=== PATIENT | male | born 1960 | race African-American/Black ===

== ENCOUNTER 2022-02-21 08:10 | Observation (INO) | payer MEDICARE, BC ==
[2022-02-21 08:47] LABS: #Eosinphils 0.3 10x3/uL (0.0-0.5); #Monocytes 0.9 10x3/uL (0.0-1.1); #Neutrophils 3.4 10x3/uL (1.5-8.4); %Basophils 0.3 % (0.0-2.0); %Eosinophils 3.9 % (0.0-6.0); %Lymphocytes 33.9 % (18.0-47.0); %Monocytes 13.4 % (0.0-10.0); %Neutrophils 48.4 % (40.0-75.0); Hemoglobin 13.7 g/dL (13.5-17.5); Mean Corpuscular HGB CONC 31.6 g/dL (32.0-36.0); Mean Corpuscular Hemoglobin 24.3 pg (27.0-33.0); Mean Corpuscular Volume 77.1 fl (81.2-95.1); Mean Platelet Volume 9.4 fl (7.4-10.4); Platelet Count 278 10x3/uL (150-450); RBC Distribution Width 16.8 % (11.5-14.5); Red Blood Cell (RBC) Count 5.63 10x6/uL (4.32-5.72); White Blood Cell (WBC) Count 6.9 10x3/uL (3.5-10.5)
[2022-02-21 08:56] LABS: Prothrombin Time 10.6 sec (9.5-12.1)
[2022-02-21 09:03] LABS: ALT (SGPT) 50 U/L (8-55); AST (SGOT) 35 U/L (5-34); Albumin 4.3 g/dL (3.4-4.8); Alkaline Phosphatase 87 U/L (40-110); Anion Gap 14 mmol/L (10-20); BUN (Urea Nitrogen) 26 mg/dL (8.4-25.7); Bilirubin, Total 0.8 mg/dL (0.2-1.2); Calc. Creatinine Clearance 0 mL/min (70-130); Calcium 9.7 mg/dL (7.8-10.44); Carbon Dioxide 28 mmol/L (23-31); Chloride 103 mmol/L (98-107); Estimated GFR 48; Glucose 135 mg/dL (80-115); Potassium 3.9 mmol/L (3.5-5.1); Protein, Total 7.3 g/dL (5.8-8.1); Sodium 141 mmol/L (136-145)
[2022-02-21] MEDS ORDERED: Aspirin Chewable 81 MG TAB ONE (11:22)
[2022-02-21 12:35] LABS: Troponin I Less than 0.010 ng/mL (< 0.028)
[2022-02-21] MEDS ORDERED: Dextrose 50% Abboject 50 ML SYRINGE SLOW IVP PRN (12:54)
[2022-02-21] MEDS ORDERED: HumaLOG 300 UNITS/3 ML VIAL SC PRN ×2 (12:54)
[2022-02-21] MEDS ORDERED: Dextrose 5% in Water 1,000 ML IV PRN (12:54)
[2022-02-21] MEDS ORDERED: Ondansetron ODT 4 MG TAB PO PRN (12:55)
[2022-02-21] MEDS ORDERED: Acetaminophen 325 MG TAB PO PRN (12:55)
[2022-02-21] MEDS ORDERED: Senokot S 8.6-50 MG TAB PO PRN (12:55)
[2022-02-21] MEDS ORDERED: Ondansetron PF 4 MG/2 ML Vial IVP PRN (12:55)
[2022-02-21 14:44] LABS: Troponin I Less than 0.010 ng/mL (< 0.028)
[2022-02-21 14:51] LABS: SARS-CoV-2 NAA Rapid Test Not Detected (NotDetected)
[2022-02-21 18:14] VITALS: BMI 42.3
[2022-02-21] MEDS ORDERED: FLU VACC QS2022-23(6MOS UP)/PF 60 MCG/0.5 ML SYRINGE IM ONE (19:00)
[2022-02-21] MEDS ORDERED: Atorvastatin Calcium 10 MG TAB PO SCH (21:00)
[2022-02-21] MEDS ORDERED: Lantus 1000 UNITS/10 ML VIAL SC SCH (21:00)
[2022-02-21] MEDS ORDERED: OMEGA ACID ETHYL ESTERS PO SCH (21:00)
[2022-02-21] MEDS ORDERED: Ezetimibe 10 MG TAB PO SCH (21:00)
[2022-02-21] MEDS ORDERED: cloNIDine 0.1 MG TAB PO SCH (21:00)
[2022-02-21] MEDS: Heparin 5,000 UNITS/ML VIAL SC SCH (21:41)
[2022-02-21] MEDS: Nitroglycerin 2% Ointment 1 INCH/1 GM Packet TOP SCH (21:42)
[2022-02-22 05:33] LABS: #Eosinphils 0.3 10x3/uL (0.0-0.5); #Monocytes 0.9 10x3/uL (0.0-1.1); #Neutrophils 3.7 10x3/uL (1.5-8.4); %Basophils 0.3 % (0.0-2.0); %Lymphocytes 32.2 % (18.0-47.0); %Monocytes 12.1 % (0.0-10.0); %Neutrophils 51.3 % (40.0-75.0); Hemoglobin 12.5 g/dL (13.5-17.5); Mean Corpuscular HGB CONC 31.4 g/dL (32.0-36.0); Mean Corpuscular Hemoglobin 24.4 pg (27.0-33.0); Mean Corpuscular Volume 77.7 fl (81.2-95.1); Mean Platelet Volume 9.2 fl (7.4-10.4); Platelet Count 239 10x3/uL (150-450); RBC Distribution Width 17.2 % (11.5-14.5); Red Blood Cell (RBC) Count 5.12 10x6/uL (4.32-5.72); White Blood Cell (WBC) Count 7.3 10x3/uL (3.5-10.5)
[2022-02-22 05:39] LABS: Anion Gap 12 mmol/L (10-20); BUN (Urea Nitrogen) 26 mg/dL (8.4-25.7); Calc. Creatinine Clearance 86 mL/min (70-130); Calcium 8.8 mg/dL (7.8-10.44); Carbon Dioxide 28 mmol/L (23-31); Chloride 104 mmol/L (98-107); Estimated GFR 48; Glucose 147 mg/dL (80-115); Potassium 4.2 mmol/L (3.5-5.1); Sodium 140 mmol/L (136-145)
[2022-02-22] MEDS ORDERED: Pioglitazone HCl 15 MG TAB PO SCH (09:00)
[2022-02-22] MEDS ORDERED: Clopidogrel Bisulfate 75 MG TAB PO SCH (09:00)
[2022-02-22] MEDS ORDERED: Losartan Potassium 50 MG TAB PO SCH (09:00)
[2022-02-22] MEDS ORDERED: Aspirin Chewable 81 MG TAB PO SCH (09:00)
[2022-02-22] MEDS ORDERED: Losartan 25 MG TAB PO SCH (09:00)
[2022-02-22] MEDS ORDERED: Atorvastatin Calcium 40 MG TAB PO SCH (09:00)
[2022-02-22] MEDS ORDERED: Empagliflozin 10 MG TAB PO SCH (09:00)
[2022-02-22] MEDS ORDERED: Cholecalciferol 1,000 UNITS (25 MCG) TAB PO SCH (09:00)
[2022-02-22] MEDS ORDERED: Amlodipine 5 MG TAB PO SCH (09:00)
[2022-02-22] MEDS: Heparin 5,000 UNITS/ML VIAL SC SCH (09:11)
[2022-02-22] MEDS: Nitroglycerin 2% Ointment 1 INCH/1 GM Packet TOP SCH (09:11)
[2022-02-22 13:45] VITALS: BP 150/69; TEMP 98
[2022-02-22 14:32] LABS: Hemoglobin A1c 9.8 % (4.0-6.0)
== END 2022-02-22 13:18 | disposition home or self-care (01) ==
LOC: CSHERS 08:10 → CSHERHOLD 13:46 → INTOOBSV 13:46 → CSHTELE 17:30
PROVIDERS: ADMIT Family Medicine; ATTEND Family Medicine
DX: R07.9 Chest pain, unspecified (principal); I25.118 Atherosclerotic heart disease of native coronary artery with other forms of angina pectoris; Z86.73 Personal history of transient ischemic attack (TIA), and cerebral infarction without residual deficits; I13.0 Hypertensive heart and chronic kidney disease with heart failure and stage 1 through stage 4 chronic kidney disease, or unspecified chronic kidney disease; I50.32 Chronic diastolic (congestive) heart failure; E11.22 Type 2 diabetes mellitus with diabetic chronic kidney disease; N18.30 Chronic kidney disease, stage 3 unspecified; D63.1 Anemia in chronic kidney disease; I70.213 Atherosclerosis of native arteries of extremities with intermittent claudication, bilateral legs; I71.40 Abdominal aortic aneurysm, without rupture, unspecified; Z20.822 Contact with and (suspected) exposure to COVID-19; J45.909 Unspecified asthma, uncomplicated; E11.21 Type 2 diabetes mellitus with diabetic nephropathy; E11.51 Type 2 diabetes mellitus with diabetic peripheral angiopathy without gangrene; E78.2 Mixed hyperlipidemia; Z79.4 Long term (current) use of insulin; Z79.82 Long term (current) use of aspirin; Z79.899 Other long term (current) drug therapy; Z79.02 Long term (current) use of antithrombotics/antiplatelets; Z87.891 Personal history of nicotine dependence
CPT/HCPCS: 0240U; 71045; 80048; 80053; 82962 ×2; 83036; 83880; 84484 ×2; 85025 ×2; 85610; 93005; 94760; 96372 ×2; 97535; 99285; G0378 ×3; 36415; 36416; J1644; J1815

== ENCOUNTER → 2022-02-26 | Day surgery (SDC) | payer MEDICARE, BC ==
[~2022-02-26] MED LIST: Adenosine 6 MG/2 ML VIAL ONE; Ascorbic Acid 500 mg Chewable Tablet ONE; Aspirin Chewable 81 MG TAB ONE; Fentanyl 100 MCG/2 ML VIAL ONE; Heparin 10,000 UNITS/ 10 ML VIAL ONE; Iopamidol 300 61% 100 ML VIAL FS ONE; Iopamidol 300 61% 50 ML VIAL FS ONE; Midazolam HCl 2 mg/2 ml Vial ONE; Nitroglycerin 50 MG/250 ML BOT 250 ML ONE
== END ==
LOC: CSHCCL 09:25
PROVIDERS: ATTEND Specialist
DX: R07.89 Other chest pain (principal); I25.118 Atherosclerotic heart disease of native coronary artery with other forms of angina pectoris; I71.40 Abdominal aortic aneurysm, without rupture, unspecified; E78.2 Mixed hyperlipidemia; I70.213 Atherosclerosis of native arteries of extremities with intermittent claudication, bilateral legs; J45.909 Unspecified asthma, uncomplicated; I13.0 Hypertensive heart and chronic kidney disease with heart failure and stage 1 through stage 4 chronic kidney disease, or unspecified chronic kidney disease; I50.32 Chronic diastolic (congestive) heart failure; E11.22 Type 2 diabetes mellitus with diabetic chronic kidney disease; N18.9 Chronic kidney disease, unspecified; E11.51 Type 2 diabetes mellitus with diabetic peripheral angiopathy without gangrene; E11.21 Type 2 diabetes mellitus with diabetic nephropathy; Z79.82 Long term (current) use of aspirin; Z79.02 Long term (current) use of antithrombotics/antiplatelets; Z79.899 Other long term (current) drug therapy; Z79.4 Long term (current) use of insulin; Z87.891 Personal history of nicotine dependence
CPT/HCPCS: 92928; 92929; 93459; 99152; 99153; C1725; C1760; C1769; C1874; C1887; C9600; C9601; J0153; J1644; J2250; J3010; Q9967

== ENCOUNTER 2022-05-14 10:57 | Observation (INO) | payer MEDICARE, BC ==
[2022-05-14 11:37] LABS: #Eosinphils 0.2 10x3/uL (0.0-0.5); #Monocytes 0.7 10x3/uL (0.0-1.1); #Neutrophils 4.1 10x3/uL (1.5-8.4); %Basophils 0.3 % (0.0-2.0); %Eosinophils 2.6 % (0.0-6.0); %Lymphocytes 27.6 % (18.0-47.0); %Monocytes 9.9 % (0.0-10.0); %Neutrophils 59.5 % (40.0-75.0); Hemoglobin 13.7 g/dL (13.5-17.5); Mean Corpuscular HGB CONC 30.4 g/dL (32.0-36.0); Mean Corpuscular Hemoglobin 23.5 pg (27.0-33.0); Mean Corpuscular Volume 77.4 fl (81.2-95.1); Mean Platelet Volume 8.8 fl (7.4-10.4); Platelet Count 239 10x3/uL (150-450); RBC Distribution Width 16.7 % (11.5-14.5); Red Blood Cell (RBC) Count 5.83 10x6/uL (4.32-5.72); White Blood Cell (WBC) Count 6.8 10x3/uL (3.5-10.5)
[2022-05-14 11:44] LABS: PTT 28.6 sec (22.0-33.0); Prothrombin Time 11.1 sec (9.5-12.1)
[2022-05-14 12:07] LABS: ALT (SGPT) 56 U/L (8-55); AST (SGOT) 30 U/L (5-34); Albumin 4.2 g/dL (3.4-4.8); Alkaline Phosphatase 81 U/L (40-110); Anion Gap 16 mmol/L (10-20); BUN (Urea Nitrogen) 26 mg/dL (8.4-25.7); Bilirubin, Total 0.8 mg/dL (0.2-1.2); Calc. Creatinine Clearance 0 mL/min (70-130); Calcium 9.3 mg/dL (7.8-10.44); Carbon Dioxide 23 mmol/L (23-31); Chloride 102 mmol/L (98-107); Estimated GFR 49; Globulin 3.1 g/dL (2.4-3.5); Glucose 143 mg/dL (80-115); Potassium 4.3 mmol/L (3.5-5.1); Protein, Total 7.3 g/dL (5.8-8.1); Sodium 137 mmol/L (136-145)
[2022-05-14] MEDS ORDERED: Dextrose 50% Abboject 50 ML SYRINGE SLOW IVP PRN (12:55)
[2022-05-14] MEDS ORDERED: Dextrose 5% in Water 1,000 ML IV PRN (12:55)
[2022-05-14] MEDS ORDERED: Iopamidol 300 61% 100 ML VIAL FS ONE (15:57)
[2022-05-14] MEDS ORDERED: cloNIDine 0.1 MG TAB ONE (20:25)
[2022-05-14] MEDS ORDERED: cloNIDine 0.1 MG TAB PO SCH (21:00)
[2022-05-14] MEDS: HumaLOG 300 UNITS/3 ML VIAL SC PRN (22:08)
[2022-05-14 23:00] VITALS: BMI 40.8
[2022-05-14 23:58] LABS: SARS-CoV-2 NAA Rapid Test Not Detected (NotDetected)
[2022-05-15] MEDS ORDERED: FLU VACC QS2022-23(6MO UP)/PF 60 MCG/0.5 ML SYRINGE IM ONE (00:15)
[2022-05-15 05:36] LABS: #Eosinphils 0.2 10x3/uL (0.0-0.5); #Monocytes 0.8 10x3/uL (0.0-1.1); #Neutrophils 3.6 10x3/uL (1.5-8.4); %Basophils 0.3 % (0.0-2.0); %Eosinophils 2.5 % (0.0-6.0); %Lymphocytes 26.6 % (18.0-47.0); %Monocytes 13.4 % (0.0-10.0); Hemoglobin 13.1 g/dL (13.5-17.5); Mean Corpuscular Hemoglobin 23.8 pg (27.0-33.0); Mean Corpuscular Volume 76.9 fl (81.2-95.1); Mean Platelet Volume 9.4 fl (7.4-10.4); Platelet Count 251 10x3/uL (150-450); RBC Distribution Width 15.8 % (11.5-14.5); White Blood Cell (WBC) Count 6.3 10x3/uL (3.5-10.5)
[2022-05-15 05:54] LABS: Anion Gap 14 mmol/L (10-20); BUN (Urea Nitrogen) 26 mg/dL (8.4-25.7); Calc. Creatinine Clearance 93 mL/min (70-130); Calcium 9.2 mg/dL (7.8-10.44); Carbon Dioxide 25 mmol/L (23-31); Cardiac Risk 3.1 (Less than 4.5); Chloride 101 mmol/L (98-107); Cholesterol 102 mg/dl (< 200 Desired); Estimated GFR 54; Glucose 179 mg/dL (80-115); HDL Cholesterol 33 mg/dL (>60 Neg Risk); LDL Cholesterol, Calculated 53 mg/dL; Potassium 4.4 mmol/L (3.5-5.1); Sodium 136 mmol/L (136-145); Triglycerides 82 mg/dL (Less than 150)
[2022-05-15] MEDS: HumaLOG 300 UNITS/3 ML VIAL SC PRN ×2 (06:17→12:01)
[2022-05-15] MEDS ORDERED: Amlodipine 10 MG TAB PO SCH (09:00)
[2022-05-15] MEDS ORDERED: Ezetimibe 10 MG TAB PO SCH (09:00)
[2022-05-15] MEDS ORDERED: Cholecalciferol 1,000 UNITS (25 MCG) TAB PO SCH (09:00)
[2022-05-15] MEDS ORDERED: Pioglitazone HCl 15 MG TAB PO SCH (09:00)
[2022-05-15] MEDS ORDERED: Atorvastatin Calcium 40 MG TAB PO SCH (09:00)
[2022-05-15] MEDS ORDERED: Losartan Potassium 50 MG TAB PO SCH (09:00)
[2022-05-15] MEDS ORDERED: Furosemide 20 MG TAB PO SCH (09:00)
[2022-05-15] MEDS ORDERED: Clopidogrel Bisulfate 75 MG TAB PO SCH (09:00)
[2022-05-15] MEDS ORDERED: Aspirin 81 mg Enteric Coated Tablet PO SCH (09:00)
[2022-05-15] MEDS ORDERED: Calcitriol 0.25 MCG CAP PO SCH (09:00)
[2022-05-15 12:40] VITALS: BP 160/78; TEMP 98.1
== END 2022-05-15 13:12 | disposition home or self-care (01) ==
LOC: CSHERS 10:57 → CSHERHOLD 14:21 → INTOOBSV 14:21 → CSHTELE 21:29
PROVIDERS: ADMIT Student in an Organized Health Care Education/Training Program; ATTEND Physician Assistant Medical
DX: R53.1 Weakness (principal); I12.9 Hypertensive chronic kidney disease with stage 1 through stage 4 chronic kidney disease, or unspecified chronic kidney disease; E11.22 Type 2 diabetes mellitus with diabetic chronic kidney disease; N18.30 Chronic kidney disease, stage 3 unspecified; I25.10 Atherosclerotic heart disease of native coronary artery without angina pectoris; E78.5 Hyperlipidemia, unspecified; H54.62 Unqualified visual loss, left eye, normal vision right eye; R47.81 Slurred speech; Z88.6 Allergy status to analgesic agent; Z88.8 Allergy status to other drugs, medicaments and biological substances; Z79.02 Long term (current) use of antithrombotics/antiplatelets; Z79.899 Other long term (current) drug therapy; Z79.4 Long term (current) use of insulin; Z79.82 Long term (current) use of aspirin; Z87.891 Personal history of nicotine dependence; Z95.5 Presence of coronary angioplasty implant and graft
CPT/HCPCS: 0042T; 70450; 70551; 71045; 80048; 80053; 80061; 82962 ×2; 84484; 85025 ×2; 85610; 85730; 93005; 93306; 97530; 97535; 99285; G0378 ×3; U0002; 36415; 36416; J1815; Q9967

== ENCOUNTER 2024-03-16 17:42 | Emergency (ER) | payer MEDICARE, BC ==
[~2024-03-16 17:42] MED LIST changes: -Adenosine 6 MG/2 ML VIAL ONE; -Ascorbic Acid 500 mg Chewable Tablet ONE; -Aspirin Chewable 81 MG TAB ONE; -Fentanyl 100 MCG/2 ML VIAL ONE; -Heparin 10,000 UNITS/ 10 ML VIAL ONE; -Iopamidol 300 61% 50 ML VIAL FS ONE; -Midazolam HCl 2 mg/2 ml Vial ONE; -Nitroglycerin 50 MG/250 ML BOT 250 ML ONE
[2024-03-16 18:20] LABS: #Basophils Less than 0.03 10x3/uL (0.0-0.2); #Eosinophils 0.24 10x3/uL (0.0-0.5); #Monocytes 0.72 10x3/uL (0.0-1.1); #Neutrophils 4.41 10x3/uL (1.5-8.4); %Basophils 0.3 % (0.0-2.0); %Eosinophils 3.4 % (0.0-6.0); %Lymphocytes 23.3 % (18.0-47.0); %Monocytes 10.2 % (0.0-10.0); %Neutrophils 62.5 % (40.0-75.0); Hematocrit 45.4 % (38.8-50.0); Hemoglobin 13.7 g/dL (13.5-17.5); Mean Corpuscular HGB CONC 30.2 g/dL (32.0-36.0); Mean Corpuscular Hemoglobin 23.4 pg (27.0-33.0); Mean Corpuscular Volume 77.5 fL (81.2-95.1); Mean Platelet Volume 9.1 fL (7.4-10.4); Platelet Count 246 10x3/uL (150-450); RBC Distribution Width 16.7 % (11.5-14.5); Red Blood Cell (RBC) Count 5.86 10x6/uL (4.32-5.72); White Blood Cell (WBC) Count 7.05 10x3/uL (3.5-10.5)
[2024-03-16] MEDS ORDERED: Aspirin Chewable 81 MG TAB ONE (18:23)
[2024-03-16 18:47] LABS: ALT (SGPT) 29 U/L (Less than 45); AST (SGOT) 29 U/L (11-34); Albumin 3.9 g/dL (3.1-4.5); Alkaline Phosphatase 82 U/L (40-110); Anion Gap 13 mmol/L (10-20); BUN (Urea Nitrogen) 28 mg/dL (8.4-25.7); Bilirubin, Total 0.8 mg/dL (0.3-1.2); Calc. Creatinine Clearance 0 mL/min (70-130); Calcium 9.8 mg/dL (7.8-10.44); Carbon Dioxide 25 mmol/L (23-31); Chloride 103 mmol/L (98-107); Estimated GFR 44; Globulin 3.4 g/dL (2.4-3.5); Glucose 198 mg/dL (80-115); Lipase 217 U/L (8-78); Potassium 4.7 mmol/L (3.5-5.1); Protein, Total 7.3 g/dL (5.8-8.1); Sodium 136 mmol/L (136-145)
[2024-03-16 18:49] LABS: Troponin I Less than 0.010 ng/mL (< 0.028)
[2024-03-16 22:49] LABS: Troponin I Less than 0.010 ng/mL (< 0.028)
== END 2024-03-16 23:48 | disposition home or self-care (01) ==
LOC: CSHERS 17:42
DX: K59.00 Constipation, unspecified (principal); R07.9 Chest pain, unspecified; I10 Essential (primary) hypertension; E78.5 Hyperlipidemia, unspecified; I25.10 Atherosclerotic heart disease of native coronary artery without angina pectoris; Z95.5 Presence of coronary angioplasty implant and graft; Z87.891 Personal history of nicotine dependence; Z79.02 Long term (current) use of antithrombotics/antiplatelets; Z79.899 Other long term (current) drug therapy
CPT/HCPCS: 36415; 71045; 74177; 80053; 83690; 83880; 84484; 85025; 93005; Q9967

== ENCOUNTER 2024-12-30 15:21 | Emergency (ER) | payer MEDICARE, BC ==
[2024-12-30 16:16] LABS: #Basophils Less than 0.03 10x3/uL (0.0-0.2); #Eosinophils 0.31 10x3/uL (0.0-0.5); #Monocytes 0.93 10x3/uL (0.0-1.1); #Neutrophils 3.41 10x3/uL (1.5-8.4); %Basophils 0.2 % (0.0-2.0); %Eosinophils 5.1 % (0.0-6.0); %Lymphocytes 22.9 % (18.0-47.0); %Monocytes 15.3 % (0.0-10.0); %Neutrophils 56.3 % (40.0-75.0); Hematocrit 40.1 % (38.8-50.0); Hemoglobin 11.9 g/dL (13.5-17.5); Mean Corpuscular Hemoglobin 24.6 pg (27.0-33.0); Mean Corpuscular Volume 83.0 fL (81.2-95.1); Platelet Count 228 10x3/uL (150-450); Red Blood Cell (RBC) Count 4.83 10x6/uL (4.32-5.72); White Blood Cell (WBC) Count 6.06 10x3/uL (3.5-10.5)
[2024-12-30 16:27] LABS: INR-International Normal Ratio 1.1; PTT 28.0 sec (22.0-33.0); Prothrombin Time 11.7 sec (9.5-12.1)
[2024-12-30 16:34] LABS: ALT (SGPT) 38 U/L (Less than 45); AST (SGOT) 34 U/L (11-34); Albumin 3.6 g/dL (3.1-4.5); Alkaline Phosphatase 76 U/L (40-110); Anion Gap 13 mmol/L (10-20); BUN (Urea Nitrogen) 31 mg/dL (8.4-25.7); Bilirubin, Total 0.8 mg/dL (0.3-1.2); Calc. Creatinine Clearance 0 mL/min (70-130); Calcium 8.8 mg/dL (7.8-10.44); Carbon Dioxide 31 mmol/L (23-31); Chloride 103 mmol/L (98-107); Globulin 2.9 g/dL (2.4-3.5); Glucose 166 mg/dL (80-115); Lipase 30 U/L (8-78); Magnesium 1.8 mg/dL (1.6-2.6); Potassium 5.1 mmol/L (3.5-5.1); Sodium 142 mmol/L (136-145)
[2024-12-30 16:35] LABS: Troponin I Less than 0.010 ng/mL (< 0.028)
[2024-12-30 16:40] LABS: Actual Bicarbonate (HCO3v) 27.4 mEq/L (22-28); Analyzer IN Cardio CS ER; Base Excess 0.8 mEq/L (-2 - +2); Calcium, Ionized (venous) 1.14 mmol/L (1.16-1.32); Chloride (VBG) 103 mmol/L (98-106); Critical Notified By: Udy, RRT; Hematocrit-VBG 37 % (42.0-52.0); Hemoglobin (Hb) 12.7 g/dL (12.6-17.4); Potassium (VBG) 4.83 mmol/L (3.70-5.30); Puncture Site Other Site; Sodium 140 mmol/L (133-146)
[2024-12-30] MEDS ORDERED: Furosemide 40 MG (4 mL) VIAL ONE (18:16)
== END 2024-12-30 19:01 ==
LOC: CSHERS 15:21
DX: E87.70 Fluid overload, unspecified (principal); I11.0 Hypertensive heart disease with heart failure; I50.9 Heart failure, unspecified; I25.10 Atherosclerotic heart disease of native coronary artery without angina pectoris; E11.9 Type 2 diabetes mellitus without complications; Z86.73 Personal history of transient ischemic attack (TIA), and cerebral infarction without residual deficits; Z95.5 Presence of coronary angioplasty implant and graft; Z95.1 Presence of aortocoronary bypass graft; Z87.891 Personal history of nicotine dependence
CPT/HCPCS: 71045; 71275; 82805; 83690; 83735; 83880; 84484; 85610; 85730; 93005; 96374; 99285; J1940; Q9967; 36415; 80053; 84443; 85025